=== PATIENT | female | born 1975 | race Caucasian/White ===

== ENCOUNTER 2020-05-24 02:24 | Emergency (ER) | payer OTHER ==
[~2020-05-24] VITALS: Ht 165.1 cm; Wt 68.0 kg
[2020-05-24 02:42] VITALS: Ht 165.1 cm; Wt 68.0 kg
[2020-05-24 04:42] VITALS: BP 111/69
== END 2020-05-24 04:42 | disposition home or self-care (01) ==
LOC: ED 02:24
DX: K59.00 Constipation, unspecified (principal); K64.4 Residual hemorrhoidal skin tags
CPT/HCPCS: Q0092